=== PATIENT | female | born 1985 | race Caucasian/White ===

== ENCOUNTER 2018-12-30 15:36 | Emergency (ER) | payer OTHER ==
--- NOTE | 2018-12-30 15:59 | EDM.PDOC ---
ED HPI GENERAL MEDICAL PROBLEM - General Chief Complaint: Genitourinary Problem Stated Complaint: PELVIC PAIN Time Seen by Provider: 12/30/18 15:40 Source of Information: Reports: Patient History Limitations: Reports: No Limitations - History of Present Illness INITIAL COMMENTS - FREE TEXT/NARRATIVE: History of present illness: []Patient visiting here until January 16 and states she's been having lower abdominal pain with intercourse for the last week. Patient has had a hysterectomy and oophorectomy for endometriosis in the past. She denies any fevers, chills, vomiting, diarrhea, vaginal discharge or history of STDs. Review of systems: As per history of present illness and below otherwise all systems reviewed and negative. Past medical history: As per history of present illness and as reviewed below otherwise noncontributory. Surgical history: As per history of present illness and as reviewed below otherwise noncontributory. Social history: No reported history of drug or alcohol abuse. Family history: As per history of present illness and as reviewed below otherwise noncontributory. Physical exam: General: Well developed, well nourished in NAD HEENT: Atraumatic, normocephalic, pupils reactive, negative for conjunctival pallor or scleral icterus, mucous membranes moist, throat clear, neck supple, nontender, trachea midline. Lungs: Clear to auscultation, breath sounds equal bilaterally, chest nontender. Heart: S1S2, regular, negative for clicks, rubs, or JVD. Abdomen: NABS, Soft, nondistended, nontender. Negative for masses or hepatosplenomegaly. Negative for costovertebral tenderness. Pelvis: Stable nontender. Genitourinary: Cultures obtained him a diffuse tenderness and difficult exam with speculum as a thick yellow discharge present Rectal: Deferred. Extremities: Atraumatic, negative for cords or calf pain. Neurovascular unremarkable. Neuro: Awake, alert, oriented. Cranial nerves II through XII unremarkable. Cerebellum unremarkable. Motor and sensory unremarkable throughout. Exam nonfocal. Skin:warm and dry Diagnostics: UA, wet prep, GC chlamydia cultures Therapeutics: Ibuprofen ED Course: Stable Impression: Dyspareunia Prescriptions: None Plan: Patient did not want to wait for wet prep results being discharged stable follow -up women's health Definitive disposition and diagnosis as appropriate pending reevaluation and review of above. Pelvic Pain Score (Numeric/FACES): 7 - Related Data Allergies Allergy/AdvReac Type Severity Reaction Status Date / Time azithromycin [From Zithromax] Allergy Headache Verified 12/30/18 15:54 hydromorphone [From Dilaudid] Allergy Hives Verified 12/30/18 15:54 Penicillins Allergy Anaphylactic Verified 12/30/18 15:54 Shock tramadol Allergy Hives Verified 12/30/18 15:54 Home Meds: Home Meds Sertraline [Zoloft] 50 mg PO DAILY 12/30/18 [History] Past Medical History HEENT History: Reports: None Cardiovascular History: Reports: None Respiratory History: Reports: None Gastrointestinal History: Reports: None 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 Musculoskeletal History: Reports: None Neurological History: Reports: None Psychiatric History: Reports: None Endocrine/Metabolic History: Reports: None Hematologic History: Reports: None Immunologic History: Reports: None Oncologic (Cancer) History: Reports: None Dermatologic History: Reports: None - Infectious Disease History Infectious Disease History: Reports: None - Past Surgical History Head Surgeries/Procedures: Reports: None Female Surgical History: Reports: Hysterectomy Musculoskeletal Surgical History: Reports: Other (See Below) Other Musculoskeletal Surgeries/Procedures:: Neck surgery, L ankle surgery Social & Family History - Family History Family Medical History: Noncontributory - Tobacco Use Smoking Status *Q: Current Every Day Smoker Years of Tobacco use: 4 Packs/Tins Daily: 0.5 - Caffeine Use Caffeine Use: Reports: Coffee - Recreational Drug Use Recreational Drug Use: No ED ROS GENERAL - Review of Systems Review Of Systems: ROS reveals no pertinent complaints other than HPI. ED EXAM, RENAL/ - Physical Exam Exam: See Below (See history of present illness) Course - Vital Signs Last Recorded V/S: Last Vital Signs Temp 98 F 12/30/18 15:54 Pulse 83 12/30/18 15:54 Resp 16 12/30/18 15:54 BP 137/87 12/30/18 15:54 Pulse Ox 97 12/30/18 15:54 - Orders/Labs/Meds Orders: Active Orders 24 hr Category Date Time Status CHLAMYDIA AND GONORRHEA BY TMA Stat Lab 12/30/18 16:10 Received TRICH/JUAN RAMON/CAND BY DNA PROBE [MOLEC] Stat Lab 12/30/18 16:10 Received Labs: Laboratory Tests 12/30/18 Range/Units 15:49 Urine Color YELLOW Urine Appearance SLT CLOUDY Urine pH 8.5 H (5.0-8.0) Ur Specific [place] 1.015 (1.001-1.035) Urine Protein NEGATIVE (NEGATIVE) mg/dL Urine Glucose (UA) NEGATIVE (NEGATIVE) mg/dL Urine Ketones NEGATIVE (NEGATIVE) mg/dL Urine Occult Blood TRACE-INTACT H (NEGATIVE) Urine Nitrite NEGATIVE (NEGATIVE) Urine Bilirubin NEGATIVE (NEGATIVE) Urine Urobilinogen 0.2 (<2.0) EU/dL Ur Leukocyte Esterase NEGATIVE (NEGATIVE) Urine RBC NONE SEEN (0-2/HPF) Urine WBC NONE SEEN (0-5/HPF) Ur Epithelial Cells NOT SEEN (NONE-FEW) Urine Bacteria RARE (NEGATIVE) Meds: Medications Discontinued Medications Generic Name Dose Route Start Last Admin Trade Name Freq PRN Reason Stop Dose Admin Hydrocodone Bitart/Acetaminophen 1 tab 12/30/18 16:32 12/30/18 16:35 Busy 325-5 Mg PO 12/30/18 16:33 1 tab ONETIME ONE Administration Ibuprofen 600 mg 12/30/18 16:15 12/30/18 16:28 Motrin PO 12/30/18 16:16 600 mg ONETIME ONE Administration Departure - Departure Time of Disposition: 17:04 Disposition: Home, Self-Care 01 Condition: Good Clinical Impression: Dyspareunia - Discharge Information *PRESCRIPTION DRUG MONITORING PROGRAM REVIEWED*: No *COPY OF PRESCRIPTION DRUG MONITORING REPORT IN PATIENT GARRISON: No Referrals: PCP,None [Primary Care Provider] - Forms: ED Department Discharge Additional Instructions: The following information is given to patients seen in the emergency department who are being discharged to home. This information is to outline your options for follow-up care. We provide all patients seen in our emergency department with a follow-up referral. The need for follow-up, as well as the timing and circumstances, are variable depending upon the specifics of your emergency department visit. If you don't have a primary care physician on staff, we will provide you with a referral. We always advise you to contact your personal physician following an emergency department visit to inform them of the circumstance of the visit and for follow-up with them and/or the need for any referrals to a consulting specialist. The emergency department will also refer you to a specialist when appropriate. This referral assures that you have the opportunity for follow-up care with a specialist. All of these measure are taken in an effort to provide you with optimal care, which includes your follow-up. Under all circumstances we always encourage you to contact your private physician who remains a resource for coordinating your care. When calling for follow-up care, please make the office aware that this follow-up is from your recent emergency room visit. If for any reason you are refused follow-up, please contact the [facility] Emergency Department at and asked to speak to the emergency department charge nurse. Ibuprofen and warm packs for pain follow-up with clinic for further work up and pain management. [facility] Primary Care - Women's Health [address] [place] [id number] - My Orders Last 24 Hours: My Active Orders 12/30/18 16:10 CHLAMYDIA AND GONORRHEA BY TMA Stat TRICH/JUAN RAMON/CAND BY DNA PROBE [MOLEC] Stat - Assessment/Plan Last 24 Hours: My Active Orders 12/30/18 16:10 CHLAMYDIA AND GONORRHEA BY TMA Stat TRICH/JUAN RAMON/CAND BY DNA PROBE [MOLEC] Stat
[2018-12-30] MEDS ORDERED: Ibuprofen 600 MG Tab PO ONE (16:15)
[2018-12-30] MEDS ORDERED: Acetaminophen/HYDROcodone 325-5 MG Tab PO ONE (16:32)
== END 2018-12-30 17:13 | disposition home or self-care (01) ==
LOC: MW.ED 15:36
DX: N94.10 Unspecified dyspareunia (principal); F17.210 Nicotine dependence, cigarettes, uncomplicated; Z88.1 Allergy status to other antibiotic agents; Z88.8 Allergy status to other drugs, medicaments and biological substances; Z88.0 Allergy status to penicillin
CPT/HCPCS: 81001; 87480; 87491; 87510; 87591; 87660; 99284; A9270; 99282

== ENCOUNTER 2019-01-03 13:14 | Emergency (ER) | payer OTHER ==
--- NOTE | 2019-01-03 14:05 | EDM.PDOC ---
ED HPI GENERAL MEDICAL PROBLEM - General Chief Complaint: Back Pain or Injury Stated Complaint: back pain Time Seen by Provider: 01/03/19 13:40 Source of Information: Reports: Patient History Limitations: Reports: No Limitations - History of Present Illness INITIAL COMMENTS - FREE TEXT/NARRATIVE: Presents reporting low back pain. The patient has a long history of low back pain and has an appointment with her primary provider in [place] in January. She just completed a long drive to [place] as well as helping her mom to unload and clean. The pain mostly radiates to her left buttock sometimes down to her left foot. No loss of bowel or bladder function, foreign travel, fevers or saddle anesthesia. Back Pain Score (Numeric/FACES): 7 - Related Data Allergies Allergy/AdvReac Type Severity Reaction Status Date / Time azithromycin [From Zithromax] Allergy Headache Verified 12/30/18 15:54 hydromorphone [From Dilaudid] Allergy Hives Verified 12/30/18 15:54 ketorolac [From Toradol] Allergy Hives Verified 01/03/19 13:26 Penicillins Allergy Anaphylactic Verified 12/30/18 15:54 Shock tramadol Allergy Hives Verified 12/30/18 15:54 Home Meds: Home Meds Sertraline [Zoloft] 10 mg PO DAILY 12/30/18 [History] Cyclobenzaprine [Flexeril] 1 tab PO TID PRN #20 tab 01/03/19 [Rx] Diclofenac Sodium [Voltaren] 75 mg PO BIDMEALS PRN #20 tab.ec 01/03/19 [Rx] Past Medical History HEENT History: Reports: None Cardiovascular History: Reports: None Respiratory History: Reports: None Gastrointestinal History: Reports: None 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 Musculoskeletal History: Reports: None Neurological History: Reports: None Psychiatric History: Reports: None Endocrine/Metabolic History: Reports: None Hematologic History: Reports: None Immunologic History: Reports: None Oncologic (Cancer) History: Reports: None Dermatologic History: Reports: None - Infectious Disease History Infectious Disease History: Reports: Chicken Pox - Past Surgical History Head Surgeries/Procedures: Reports: None Female Surgical History: Reports: Hysterectomy Musculoskeletal Surgical History: Reports: Other (See Below) Other Musculoskeletal Surgeries/Procedures:: Neck surgery, L ankle surgery Social & Family History - Family History Family Medical History: Noncontributory - Tobacco Use Smoking Status *Q: Current Every Day Smoker Years of Tobacco use: 7 Packs/Tins Daily: 0.5 - Caffeine Use Caffeine Use: Reports: Soda - Recreational Drug Use Recreational Drug Use: No ED ROS GENERAL - Review of Systems Review Of Systems: ROS reveals no pertinent complaints other than HPI. ED EXAM,LOWER BACK PAIN/INJURY - Physical Exam Exam: See Below Exam Limited By: No Limitations General Appearance: Alert, No Apparent Distress Ears: Normal External Exam Nose: Normal Inspection Throat/Mouth: Normal Inspection Head: Atraumatic, Normocephalic Neck: Normal Inspection Respiratory/Chest: No Respiratory Distress, Lungs Clear, Normal Breath Sounds Cardiovascular: Normal Peripheral Pulses, Regular Rate, Rhythm, No Murmur Back Exam: Normal Inspection, Paraspinal Tenderness (Left SI joint), Vertebral Tenderness (Lumbar), Other (Negative SLR bilateral) Extremities: Normal Inspection Neurological: Alert, Normal Dorsiflexion, No Motor/Sensory Deficits. No: Straight Leg Raise (L), Straight Leg Raise (R), Difficulty Walking DTR - Lower Extremities: 2+: Knee (R), Knee (L) Psychiatric: Normal Affect, Normal Mood Skin Exam: Warm, Dry, Intact, Normal Color, No Rash Lymphatic: No Adenopathy Course - Vital Signs Last Recorded V/S: Last Vital Signs Temp 36.3 C 01/03/19 13:27 Pulse 84 01/03/19 13:27 Resp 16 01/03/19 13:27 BP 107/73 01/03/19 13:27 Pulse Ox 97 01/03/19 13:27 - Orders/Labs/Meds Orders: Active Orders 24 hr Category Date Time Status Orphenadrine [Norflex] Med 01/03/19 14:00 Once 60 mg IM Q12H ONE Medication Orders Orphenadrine Citrate (Norflex) 60 mg IM Q12H ONE Stop: 01/03/19 14:01 Meds: Medications Generic Name Dose Route Start Last Admin Trade Name Freq PRN Reason Stop Dose Admin Orphenadrine Citrate 60 mg 01/03/19 14:00 Norflex IM 01/03/19 14:01 Q12H ONE Departure - Departure Time of Disposition: 14:03 Disposition: Home, Self-Care 01 Condition: Good Clinical Impression: Lumbar strain Qualifiers: Encounter type: subsequent encounter Qualified Code(s): S39.012D - Strain of muscle, fascia and tendon of lower back, subsequent encounter - Discharge Information Prescriptions: Cyclobenzaprine [Flexeril] 1 tab PO TID PRN #20 tab PRN Reason: Muscle Spasm Diclofenac Sodium [Voltaren] 75 mg PO BIDMEALS PRN #20 tab.ec PRN Reason: Pain Referrals: PCP,None [Primary Care Provider] - [facility] [Outside] [facility] [Outside] Additional Instructions: 1. Follow-up with primary provider in [place] 2. Flexeril 10 mg every 8 hours as needed for muscle spasm 3. Diclofenac 75 mg twice daily for pain. Take with food - My Orders Last 24 Hours: My Active Orders 01/03/19 14:00 Orphenadrine [Norflex] 60 mg IM Q12H ONE - Assessment/Plan Last 24 Hours: My Active Orders 01/03/19 14:00 Orphenadrine [Norflex] 60 mg IM Q12H ONE
== END 2019-01-03 14:15 | disposition home or self-care (01) ==
LOC: MW.ED 13:14
DX: S39.012A Strain of muscle, fascia and tendon of lower back, initial encounter (principal); F17.210 Nicotine dependence, cigarettes, uncomplicated; Z88.1 Allergy status to other antibiotic agents; Z88.5 Allergy status to narcotic agent; Z79.899 Other long term (current) drug therapy; Z88.0 Allergy status to penicillin; X58.XXXA Exposure to other specified factors, initial encounter
CPT/HCPCS: 96372; 99283; J2360

== ENCOUNTER 2019-01-12 17:01 | Emergency (ER) | payer OTHER ==
[2019-01-12] MEDS ORDERED: Diclofenac Sodium 75 MG Tab.EC PO ONE (18:35)
--- NOTE | 2019-01-12 18:35 | EDM.PDOC ---
ED HPI GENERAL MEDICAL PROBLEM - General Chief Complaint: Back Pain or Injury Stated Complaint: NECK PAIN Time Seen by Provider: 01/12/19 17:58 Source of Information: Reports: Patient History Limitations: Reports: No Limitations - History of Present Illness INITIAL COMMENTS - FREE TEXT/NARRATIVE: HISTORY AND PHYSICAL: History of present illness: Patient is a 33-year-old female presents to the ED today with neck pain over the past 2-3 days. Patient rates her pain a 10 out of 10 and states she has taken Tylenol without relief of her symptoms. Patient states she has a history of chronic neck pain and had a bulging disc in which she had had surgery on many years ago. Patient denies any trauma or injury to the neck. Patient states other than the pain, she has no other symptoms and feels per her usual self. Patient denies fever, chills, chest pain, shortness of breath, or cough. Denies headache, change in vision, syncope, or near syncope. Denies nausea, vomiting, abdominal pain, diarrhea, constipation, or dysuria. Has not noted any blood in urine or stool. Patient has been eating and drinking appropriately. Review of systems: As per history of present illness and below otherwise all systems reviewed and negative. Past medical history: As per history of present illness and as reviewed below otherwise noncontributory. Surgical history: As per history of present illness and as reviewed below otherwise noncontributory. Social history: See social history for further information Family history: As per history of present illness and as reviewed below otherwise noncontributory. Physical exam: General: Patient is alert, oriented, and in no acute distress. Patient sitting comfortably on exam table. HEENT: Atraumatic, normocephalic, pupils equal and reactive bilaterally, negative for conjunctival pallor or scleral icterus, mucous membranes moist, TMs normal bilaterally, throat clear, neck supple, nontender, trachea midline. No drooling or trismus noted. No meningeal signs. No hot potato voice noted. Lungs: Clear to auscultation, breath sounds equal bilaterally, chest nontender. Heart: S1S2, regular rate and rhythm without overt murmur Abdomen: Soft, nondistended, nontender. Negative for masses or hepatosplenomegaly. Negative for costovertebral tenderness. Pelvis: Stable nontender. Genitourinary: Deferred. Rectal: Deferred. Skin: Intact, warm, dry. No lesions or rashes noted. Extremities/musculoskeletal: Atraumatic, negative for cords or calf pain. Neurovascular unremarkable.patient has full range of motion of the thoracic and lumbar spine. Patient has limited range of motion of the cervical spine due to pain. Patient does have specific point tenderness of bilateral trapezius muscles and negative pain to palpation of the spinous processes themselves. No obvious deformities, step-offs, or crepitus of the complete spine. Negative Kernig / Brudzinski sign. Neuro: Awake, alert, oriented. Cranial nerves II through XII unremarkable. Cerebellum unremarkable. Motor and sensory unremarkable throughout. Exam nonfocal. Notes: Discussed the importance for follow-up with a primary care provider.Voices understanding and is agreeable to plan of care. Denies any further questions or concerns at this time. Diagnostics: Cervical XR Therapeutics: Norflex, Diclofenac Prescription: Patient declines diclofenac and Flexeril Impression: Neck pain / spasm Plan: 1. Alternate ibuprofen and Tylenol as directed for pain and discomfort. Follow up with her primary care provider as discussed. 2. Return to the ED as needed and as discussed. Definitive disposition and diagnosis as appropriate pending reevaluation and review of above. Neck Pain Score (Numeric/FACES): 10 - Related Data Allergies Allergy/AdvReac Type Severity Reaction Status Date / Time azithromycin [From Zithromax] Allergy Headache Verified 01/12/19 17:23 hydromorphone [From Dilaudid] Allergy Hives Verified 01/12/19 17:23 ketorolac [From Toradol] Allergy Hives Verified 01/12/19 17:23 Penicillins Allergy Anaphylactic Verified 01/12/19 17:23 Shock tramadol Allergy Hives Verified 01/12/19 17:23 Home Meds: Home Meds Sertraline [Zoloft] 10 mg PO DAILY 12/30/18 [History] Cyclobenzaprine [Flexeril] 1 tab PO TID PRN #20 tab 01/03/19 [Rx] Diclofenac Sodium [Voltaren] 75 mg PO BIDMEALS PRN #20 tab.ec 01/03/19 [Rx] Past Medical History HEENT History: Reports: None Cardiovascular History: Reports: None Respiratory History: Reports: None Gastrointestinal History: Reports: None 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 Musculoskeletal History: Reports: None Neurological History: Reports: None Psychiatric History: Reports: None Endocrine/Metabolic History: Reports: None Hematologic History: Reports: None Immunologic History: Reports: None Oncologic (Cancer) History: Reports: None Dermatologic History: Reports: None - Infectious Disease History Infectious Disease History: Reports: None - Past Surgical History Head Surgeries/Procedures: Reports: None Female Surgical History: Reports: Hysterectomy Musculoskeletal Surgical History: Reports: Other (See Below) Other Musculoskeletal Surgeries/Procedures:: Neck surgery, L ankle surgery Social & Family History - Family History Family Medical History: Noncontributory - Tobacco Use Smoking Status *Q: Current Every Day Smoker Years of Tobacco use: 4 Packs/Tins Daily: 0.5 - Caffeine Use Caffeine Use: Reports: Coffee - Recreational Drug Use Recreational Drug Use: No ED ROS GENERAL - Review of Systems Review Of Systems: ROS reveals no pertinent complaints other than HPI. ED EXAM, UPPER BACK/NECK PAIN - Physical Exam Exam: See Below (see dictation) Course - Vital Signs Last Recorded V/S: Last Vital Signs Temp 36.5 C 01/12/19 17:24 Pulse 81 01/12/19 17:24 Resp 16 01/12/19 17:24 BP 128/77 01/12/19 17:24 Pulse Ox 98 01/12/19 17:24 - Orders/Labs/Meds Meds: Medications Discontinued Medications Generic Name Dose Route Start Last Admin Trade Name [place] PRN Reason Stop Dose Admin Diclofenac Sodium 75 mg 01/12/19 18:35 01/12/19 19:00 Voltaren PO 01/12/19 18:36 75 mg ONETIME ONE Administration Orphenadrine Citrate 60 mg 01/12/19 18:04 01/12/19 18:10 Norflex IM 01/12/19 18:05 60 mg NOW STA Administration Departure - Departure Time of Disposition: 19:46 Disposition: Home, Self-Care 01 Clinical Impression: Neck pain, Muscle spasms of neck - Discharge Information Instructions: Musculoskeletal Pain Referrals: PCP,None [Primary Care Provider] - Forms: ED Department Discharge Additional Instructions: The following information is given to patients seen in the emergency department who are being discharged to home. This information is to outline your options for follow-up care. We provide all patients seen in our emergency department with a follow-up referral. The need for follow-up, as well as the timing and circumstances, are variable depending upon the specifics of your emergency department visit. If you don't have a primary care physician on staff, we will provide you with a referral. We always advise you to contact your personal physician following an emergency department visit to inform them of the circumstance of the visit and for follow-up with them and/or the need for any referrals to a consulting specialist. The emergency department will also refer you to a specialist when appropriate. This referral assures that you have the opportunity for follow-up care with a specialist. All of these measure are taken in an effort to provide you with optimal care, which includes your follow-up. Under all circumstances we always encourage you to contact your private physician who remains a resource for coordinating your care. When calling for follow-up care, please make the office aware that this follow-up is from your recent emergency room visit. If for any reason you are refused follow-up, please contact the [facility] Emergency Department at and asked to speak to the emergency department charge nurse. [facility] [address] [place] [id number] [place] [address] 1. Alternate ibuprofen and Tylenol as directed for pain and discomfort. Follow up with her primary care provider as discussed. 2. Return to the ED as needed and as discussed.
--- NOTE | 2019-01-12 19:07 | CR ---
INDICATION: Cervical pain, similar to pain prior to surgery. COMPARISON: None available. FINDINGS: The cervical spine was examined with AP, lateral, and open-mouth views for a total of three views. There is straightening of the cervical spine which may be the result of muscular spasm or positioning for the examination. There has been anterior cervical fusion at C5-6. The fused segments are in anatomic alignment. The anterior metallic plate, anchoring screws, and interbody graft are intact and are in good alignment. There is solid osseous fusion, with complete absence of the disc space. There is mild C6-7 and C7-T1 disc degenerative disease with mild loss of disc height. The rest of the cervical spine is normal in appearance IMPRESSION: Satisfactory appearance status post anterior cervical fusion at C5-6 with solid osseous fusion. Mild C6-7 and C7-T1 disc degenerative disease. Dictated by Rojelio Sun MD @ Jan 12 2019 7:01PM Signed by Dr. Rojelio Sun @ Jan 12 2019 7:05PM
== END 2019-01-12 18:59 | disposition home or self-care (01) ==
LOC: MW.ED 17:01
DX: M62.838 Other muscle spasm (principal); F17.210 Nicotine dependence, cigarettes, uncomplicated; Z79.899 Other long term (current) drug therapy; Z88.1 Allergy status to other antibiotic agents; Z88.6 Allergy status to analgesic agent; Z88.0 Allergy status to penicillin
CPT/HCPCS: 72040; 96372; 99283; A9270; J2360

== ENCOUNTER 2019-08-15 16:08 | Emergency (ER) | payer OTHER ==
[2019-08-15] MEDS ORDERED: Ketorolac 30 MG/ML SDV IVPUSH ONE (16:38)
[2019-08-15] MEDS ORDERED: Sodium Chloride 0.9% 1,000 ML IV ONE (16:38)
[2019-08-15] MEDS ORDERED: Morphine 2 MG/ML Syringe IVPUSH ONE ×2 (16:40→18:05)
--- NOTE | 2019-08-15 16:40 | EDM.PDOC ---
ED HPI GENERAL MEDICAL PROBLEM - General Chief Complaint: Abdominal Pain Stated Complaint: ABDOMINAL PAIN Time Seen by Provider: 08/15/19 16:38 Source of Information: Reports: Patient History Limitations: Reports: No Limitations - History of Present Illness INITIAL COMMENTS - FREE TEXT/NARRATIVE: HISTORY AND PHYSICAL: History of present illness: Patient is a 34-year-old female presents to the ED With complaint of right lower abdominal pain x 3 days. She states the pain has progressively gotten worse. She reports painful urination and blood in her urine. She also notes blood on the toilet paper from vaginal bleeding. She states she had a total hysterectomy secondary to endometriosis. She has also had an appendectomy. She denies fevers, chills, nausea, vomiting, diarrhea. Denies history of STDs and is not concerned for this today. Patient states she had a similar pain 2 months ago and had laparoscopic surgery to remove endometriosis in [place]. Review of systems: As per history of present illness and below otherwise all systems reviewed and negative. Past medical history: As per history of present illness and as reviewed below otherwise noncontributory. Surgical history: As per history of present illness and as reviewed below otherwise noncontributory. Social history: No reported history of drug or alcohol abuse. Family history: As per history of present illness and as reviewed below otherwise noncontributory. Physical exam: General: Patient sitting comfortably in no acute distress and nontoxic appearing HEENT: Atraumatic, normocephalic, pupils reactive, negative for conjunctival pallor or scleral icterus, mucous membranes moist, throat clear, neck supple, nontender, trachea midline. No meningeal signs. Lungs: Clear to auscultation, breath sounds equal bilaterally, chest nontender. Heart: S1S2, regular, negative for clicks, rubs, or overt murmur. Abdomen: RLQ tenderness to palpation. Soft, nondistended. Negative for masses or hepatosplenomegaly. Negative for costovertebral tenderness. No rigidity, rebound, guarding. Pelvis: Stable nontender. Genitourinary: minimal white vaginal discharge. Right adnexal tenderness to palpation. Cervix absent Rectal: Deferred. Extremities: Atraumatic, negative for cords or calf pain. Neurovascular unremarkable. Neuro: Awake, alert, oriented. Cranial nerves II through XII unremarkable. Cerebellum unremarkable. Motor and sensory unremarkable throughout. Exam nonfocal. Notes: Diagnostics: CBC, CMP, UA, gc/chlamdydia, trich/cand/BV Therapeutics: 4mg Morphine IV Prescriptions: Flagyl Impression: Bacterial vaginosis, pelvic pain Plan: Take medication as instructed Alternate tylenol and motrin as needed Follow up with primary care provider and/or inside sales engineer, please call the number provided to schedule an appointment Return to ED as needed as discussed Definitive disposition and diagnosis as appropriate pending reevaluation and review of above. Lower Abdominal Pain Score (Numeric/FACES): 6 - Related Data Allergies Allergy/AdvReac Type Severity Reaction Status Date / Time azithromycin [From Zithromax] Allergy Headache Verified 08/15/19 16:27 hydromorphone [From Dilaudid] Allergy Hives Verified 08/15/19 16:27 ketorolac [From Toradol] Allergy Hives Verified 08/15/19 16:27 Penicillins Allergy Anaphylactic Verified 08/15/19 16:27 Shock tramadol Allergy Hives Verified 08/15/19 16:27 Home Meds: Home Meds Sertraline [Zoloft] 10 mg PO DAILY 12/30/18 [History] Cyclobenzaprine [Flexeril] 1 tab PO TID PRN #20 tab 01/03/19 [Rx] Diclofenac Sodium [Voltaren] 75 mg PO BIDMEALS PRN #20 tab.ec 01/03/19 [Rx] Past Medical History HEENT History: Reports: None Cardiovascular History: Reports: None Respiratory History: Reports: None Gastrointestinal History: Reports: None 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 Musculoskeletal History: Reports: None Neurological History: Reports: None Psychiatric History: Reports: None Endocrine/Metabolic History: Reports: None Hematologic History: Reports: None Immunologic History: Reports: None Oncologic (Cancer) History: Reports: None Dermatologic History: Reports: None - Infectious Disease History Infectious Disease History: Reports: Chicken Pox - Past Surgical History Head Surgeries/Procedures: Reports: None Female Surgical History: Reports: Hysterectomy Musculoskeletal Surgical History: Reports: Other (See Below) Other Musculoskeletal Surgeries/Procedures:: Neck surgery, L ankle surgery Social & Family History - Family History Family Medical History: Noncontributory - Tobacco Use Smoking Status *Q: Current Every Day Smoker Years of Tobacco use: 4 Packs/Tins Daily: 0.5 - Caffeine Use Caffeine Use: Reports: Soda - Recreational Drug Use Recreational Drug Use: No ED ROS GENERAL - Review of Systems Review Of Systems: Comprehensive ROS is negative, except as noted in HPI. ED EXAM, GI/ABD - Physical Exam Exam: See Below (see dictation) Course - Vital Signs Last Recorded V/S: Last Vital Signs Temp 97.9 F 08/15/19 18:38 Pulse 60 08/15/19 18:38 Resp 15 08/15/19 18:38 BP 124/85 08/15/19 18:38 Pulse Ox 98 08/15/19 18:38 - Orders/Labs/Meds Orders: Active Orders 24 hr Category Date Time Status CHLAMYDIA AND GONORRHEA BY TMA Stat Lab 08/15/19 17:59 Ordered Labs: Laboratory Tests 08/15/19 08/15/19 08/15/19 Range/Units 16:50 16:50 17:17 WBC 7.43 (4.0-11.0) K/uL RBC 4.77 (4.30-5.90) M/uL Hgb 13.8 (12.0-16.0) g/dL Hct 41.9 (36.0-46.0) % MCV 87.8 (80.0-98.0) fL MCH 28.9 (27.0-32.0) pg MCHC 32.9 (31.0-37.0) g/dL RDW Std Deviation 42.6 (28.0-62.0) fl RDW Coeff of Brittnee 13 (11.0-15.0) % Plt Count 273 (150-400) K/uL MPV 11.00 (7.40-12.00) fL Neut % (Auto) 74.9 (48.0-80.0) % Lymph % (Auto) 17.9 (16.0-40.0) % Crosby % (Auto) 4.6 (0.0-15.0) % Eos % (Auto) 2.3 (0.0-7.0) % Baso % (Auto) 0.3 (0.0-1.5) % Neut # (Auto) 5.6 (1.4-5.7) K/uL Lymph # (Auto) 1.3 (0.6-2.4) K/uL [place] # (Auto) 0.3 (0.0-0.8) K/uL Eos # (Auto) 0.2 (0.0-0.7) K/uL Baso # (Auto) 0.0 (0.0-0.1) K/uL Nucleated RBC % 0.0 /100WBC Nucleated RBCs # 0 K/uL Sodium 146 H (136-145) mmol/L Potassium 3.3 L (3.5-5.1) mmol/L Chloride 106 (98-107) mmol/L Carbon Dioxide 26.8 (21.0-32.0) mmol/L BUN 12 (7.0-18.0) mg/dL Creatinine 0.8 (0.6-1.0) mg/dL Est Cr Clr Drug Dosing 94.51 mL/min Estimated GFR (MDRD) > 60.0 ml/min Glucose 88 (74-106) mg/dL Calcium 9.5 (8.5-10.1) mg/dL Total Bilirubin 0.4 (0.2-1.0) mg/dL AST 13 L (15-37) IU/L ALT 18 (14-63) IU/L Alkaline Phosphatase 76 (46-116) U/L Total Protein 7.7 (6.4-8.2) g/dL Albumin 4.5 (3.4-5.0) g/dL Globulin 3.2 (2.6-4.0) g/dL Albumin/Globulin Ratio 1.4 (0.9-1.6) Urine Color YELLOW Urine Appearance HAZY Urine pH 6.0 (5.0-8.0) Ur Specific [place] 1.025 (1.001-1.035) Urine Protein NEGATIVE (NEGATIVE) mg/dL Urine Glucose (UA) NEGATIVE (NEGATIVE) mg/dL Urine Ketones NEGATIVE (NEGATIVE) mg/dL Urine Occult Blood SMALL H (NEGATIVE) Urine Nitrite NEGATIVE (NEGATIVE) Urine Bilirubin NEGATIVE (NEGATIVE) Urine Urobilinogen 0.2 (<2.0) EU/dL Ur Leukocyte Esterase NEGATIVE (NEGATIVE) Urine RBC 0-4 (0-2/HPF) Urine WBC 0-4 (0-5/HPF) Ur Epithelial Cells OCCASIONAL (NONE-FEW) Urine Bacteria FEW (NEGATIVE) Urine Mucus MODERATE (NONE-MOD) Olga species DNA (NEGATIVE) Gardnerella DNA Probe (NEGATIVE) Trichomonas DNA Probe (NEGATIVE) 01/28/20 Range/Units 17:52 WBC (4.0-11.0) K/uL RBC (4.30-5.90) M/uL Hgb (12.0-16.0) g/dL Hct (36.0-46.0) % MCV (80.0-98.0) fL MCH (27.0-32.0) pg MCHC (31.0-37.0) g/dL RDW Std Deviation (28.0-62.0) fl RDW Coeff of Brittnee (11.0-15.0) % Plt Count (150-400) K/uL MPV (7.40-12.00) fL Neut % (Auto) (48.0-80.0) % Lymph % (Auto) (16.0-40.0) % Crosby % (Auto) (0.0-15.0) % Eos % (Auto) (0.0-7.0) % Baso % (Auto) (0.0-1.5) % Neut # (Auto) (1.4-5.7) K/uL Lymph # (Auto) (0.6-2.4) K/uL Crosby # (Auto) (0.0-0.8) K/uL Eos # (Auto) (0.0-0.7) K/uL Baso # (Auto) (0.0-0.1) K/uL Nucleated RBC % /100WBC Nucleated RBCs # K/uL Sodium (136-145) mmol/L Potassium (3.5-5.1) mmol/L Chloride (98-107) mmol/L Carbon Dioxide (21.0-32.0) mmol/L BUN (7.0-18.0) mg/dL Creatinine (0.6-1.0) mg/dL Est Cr Clr Drug Dosing mL/min Estimated GFR (MDRD) ml/min Glucose (74-106) mg/dL Calcium (8.5-10.1) mg/dL Total Bilirubin (0.2-1.0) mg/dL AST (15-37) IU/L ALT (14-63) IU/L Alkaline Phosphatase (46-116) U/L Total Protein (6.4-8.2) g/dL Albumin (3.4-5.0) g/dL Globulin (2.6-4.0) g/dL Albumin/Globulin Ratio (0.9-1.6) Urine Color Urine Appearance Urine pH (5.0-8.0) Ur Specific [place] (1.001-1.035) Urine Protein (NEGATIVE) mg/dL Urine Glucose (UA) (NEGATIVE) mg/dL Urine Ketones (NEGATIVE) mg/dL Urine Occult Blood (NEGATIVE) Urine Nitrite (NEGATIVE) Urine Bilirubin (NEGATIVE) Urine Urobilinogen (<2.0) EU/dL Ur Leukocyte Esterase (NEGATIVE) Urine RBC (0-2/HPF) Urine WBC (0-5/HPF) Ur Epithelial Cells (NONE-FEW) Urine Bacteria (NEGATIVE) Urine Mucus (NONE-MOD) Olga species DNA NEGATIVE (NEGATIVE) Gardnerella DNA Probe POSITIVE H (NEGATIVE) Trichomonas DNA Probe NEGATIVE (NEGATIVE) Meds: Medications Discontinued Medications Generic Name Dose Route Start Last Admin Trade Name Freq PRN Reason Stop Dose Admin Sodium Chloride 1,000 mls @ 999 mls/hr 08/15/19 16:38 08/15/19 16:54 Normal Saline IV 08/15/19 17:38 999 mls/hr STAT ONE Administration Ketorolac Tromethamine 30 mg 08/15/19 16:38 08/15/19 17:04 Toradol IVPUSH 08/15/19 16:39 Not Given ONETIME ONE Morphine Sulfate 2 mg 08/15/19 16:40 08/15/19 16:54 Morphine IVPUSH 08/15/19 16:41 2 mg ONETIME ONE Administration Morphine Sulfate 2 mg 08/15/19 18:05 08/15/19 18:31 Morphine IVPUSH 08/15/19 18:06 2 mg ONETIME ONE Administration Departure - Departure Time of Disposition: 19:21 Disposition: Home, Self-Care 01 Condition: Good Clinical Impression: Bacterial vaginosis, Pelvic pain - Discharge Information Referrals: PCP,None [Primary Care Provider] - Forms: ED Department Discharge Additional Instructions: The following information is given to patients seen in the emergency department who are being discharged to home. This information is to outline your options for follow-up care. We provide all patients seen in our emergency department with a follow-up referral. The need for follow-up, as well as the timing and circumstances, are variable depending upon the specifics of your emergency department visit. If you don't have a primary care physician on staff, we will provide you with a referral. We always advise you to contact your personal physician following an emergency department visit to inform them of the circumstance of the visit and for follow-up with them and/or the need for any referrals to a consulting specialist. The emergency department will also refer you to a specialist when appropriate. This referral assures that you have the opportunity for follow-up care with a specialist. All of these measure are taken in an effort to provide you with optimal care, which includes your follow-up. Under all circumstances we always encourage you to contact your private physician who remains a resource for coordinating your care. When calling for follow-up care, please make the office aware that this follow-up is from your recent emergency room visit. If for any reason you are refused follow-up, please contact the [facility] Emergency Department at and asked to speak to the emergency department charge nurse. [facility] [address] [place] [address] [facility] [address] [place] [id number] [facility] - [facility] [address] [place] [id number] [facility] [address] [place] [id number] Take medication as instructed Alternate tylenol and motrin as needed Follow up with primary care provider and/or inside sales engineer, please call the number provided to schedule an appointment Return to ED as needed as discussed Sepsis Event Note - Evaluation Sepsis Screening Result: No Definite Risk - Focused Exam Vital Signs: Vital Signs Temp Pulse Resp BP Pulse Ox 08/15/19 18:38 97.9 F 60 15 124/85 98 08/15/19 17:34 59 L 17 137/83 98 08/15/19 16:28 97.8 F 79 18 136/91 H 98 Date Exam was Performed: 08/15/19 Time Exam was Performed: 19:20 - My Orders Last 24 Hours: My Active Orders 08/15/19 17:59 CHLAMYDIA AND GONORRHEA BY TMA Stat - Assessment/Plan Last 24 Hours: My Active Orders 08/15/19 17:59 CHLAMYDIA AND GONORRHEA BY TMA Stat
[2019-08-15 17:29] LABS: BLOOD UREA NITROGEN,BUN 12 mg/dL (7.0-18.0); CARBON DIOXIDE,CO2 26.8 mmol/L (21.0-32.0); CHLORIDE,CL 106 mmol/L (98-107); GLUCOSE RANDOM 88 mg/dL (74-106); POTASSIUM,K 3.3 mmol/L (3.5-5.1); SODIUM,NA 146 mmol/L (136-145)
== END 2019-08-15 19:47 | disposition home or self-care (01) ==
LOC: MW.ED 16:08
DX: N76.0 Acute vaginitis (principal); B96.89 Other specified bacterial agents as the cause of diseases classified elsewhere; F17.210 Nicotine dependence, cigarettes, uncomplicated; Z88.1 Allergy status to other antibiotic agents; Z88.0 Allergy status to penicillin; Z88.5 Allergy status to narcotic agent; Z79.899 Other long term (current) drug therapy
CPT/HCPCS: 80053; 81001; 85025; 87480; 87491; 87510; 87591; 87660; 96361; 96374; 96376; 99284; J2270; J7030; 99283

== ENCOUNTER 2019-08-18 16:32 | Emergency (ER) | payer OTHER ==
[2019-08-18 17:43] LABS: BLOOD UREA NITROGEN,BUN 15 mg/dL (7.0-18.0); CHLORIDE,CL 107 mmol/L (98-107); GLUCOSE RANDOM 89 mg/dL (74-106); POTASSIUM,K 3.9 mmol/L (3.5-5.1); SODIUM,NA 145 mmol/L (136-145)
--- NOTE | 2019-08-18 17:43 | EDM.PDOC ---
ED HPI GENERAL MEDICAL PROBLEM - General Chief Complaint: Abdominal Pain Stated Complaint: ABDOMINAL PAIN Time Seen by Provider: 08/18/19 16:34 Source of Information: Reports: Patient History Limitations: Reports: No Limitations - History of Present Illness INITIAL COMMENTS - FREE TEXT/NARRATIVE: HISTORY AND PHYSICAL: History of present illness: Patient is a 34-year-old female who presents to the emergency room with complaints of pelvic pain and right abdominal pain. She states the pain has been ongoing for approximately 1 week. She was seen in our emergency room on and did have labs and a pelvic exam done at that time which showed she had bacterial vaginosis. Her lab work was otherwise unremarkable and her STD screening was otherwise negative. She states she has been continuing to have sex while taking the Flagyl and has had increased pain in the vagina with irritation since initiating the medication. Pain after sexual intercourse today. She states that she had a prescription for Tylenol with codeine but is all out and would like a refill of this. She states today's visit is no different than previous and has no other complaints or concerns. Patient denies any fever, chills, headache, change in vision, syncope or near syncope. Denies any chest pain, back pain, shortness of breath or cough. Denies any abdominal pain, nausea, vomiting, diarrhea, constipation or dysuria. Has not noted any blood in urine or stool. Patient has been eating and drinking appropriately. Review of systems: As per history of present illness and below otherwise all systems reviewed and negative. Past medical history: As per history of present illness and as reviewed below otherwise noncontributory. Surgical history: As per history of present illness and as reviewed below otherwise noncontributory. Social history: See social history for further information Family history: As per history of present illness and as reviewed below otherwise noncontributory. Physical exam: General: Developed and well-nourished 34-year-old female. Alert and oriented. Nontoxic-appearing and in no acute distress. HEENT: Atraumatic, normocephalic, pupils equal and reactive bilaterally, negative for conjunctival pallor or scleral icterus, mucous membranes moist, throat clear, neck supple, nontender, trachea midline. No drooling or trismus noted. No meningeal signs. No hot potato voice noted. Lungs: Clear to auscultation, breath sounds equal bilaterally, chest nontender. Heart: S1S2, regular rate and rhythm without overt murmur Abdomen: Soft, nondistended, nontender. Negative for masses or hepatosplenomegaly. Negative for costovertebral tenderness. Pelvis: Stable nontender. Skin: Intact, warm, dry. No lesions or rashes noted. Extremities: Atraumatic, moves all extremities per self without difficulty or deficits, negative for cords or calf pain. Neurovascular unremarkable. Neuro: Awake, alert, oriented. Cranial nerves II through XII unremarkable. Cerebellum unremarkable. Motor and sensory unremarkable throughout. Exam nonfocal. Notes: Patient did just have a pelvic exam with STD screening and the diagnosis of bacterial vaginosis. We will not repeat the pelvic exam today but will repeat some basic lab work. She has asked frequently for Tylenol with codeine while here stating she took all the pain meds she had available to her at home. I will give her some lidocaine jelly for the external genitalia as she states this is where the majority of her pain is. 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 Supportive care measures were reviewed and discussed. Voices understanding and is agreeable to plan of care. Denies any further questions or concerns at this time. Diagnostics: CBC, CMP, UA Therapeutics: None Prescription: Flagyl Lidocaine Jelly Impression: Pelvic Pain Encounter for medication refill Plan: 1. Do not have sex while being treated for bacterial vaginosis. Nothing in the vagina until medications are completed. If you contine to have pelvic pain, follow up with your OBGYN for further management/testing. 2. You can use the topical lidocaine jelly three times daily as needed. Apply topically as directed. 3. Tylenol and/or ibuprofen as needed for pain management. 4. Follow-up with your OBGYN or primary care provider as we discussed. Return to the ED as needed and as discussed Definitive disposition and diagnosis as appropriate pending reevaluation and review of above. - Related Data Allergies Allergy/AdvReac Type Severity Reaction Status Date / Time azithromycin [From Zithromax] Allergy Headache Verified 08/18/19 16:51 hydromorphone [From Dilaudid] Allergy Hives Verified 08/18/19 16:51 ketorolac [From Toradol] Allergy Hives Verified 08/18/19 16:51 Penicillins Allergy Anaphylactic Verified 08/18/19 16:51 Shock tramadol Allergy Hives Verified 08/18/19 16:51 Home Meds: Home Meds Sertraline [Zoloft] 10 mg PO DAILY 12/30/18 [History] Cyclobenzaprine [Flexeril] 1 tab PO TID PRN #20 tab 01/03/19 [Rx] Diclofenac Sodium [Voltaren] 75 mg PO BIDMEALS PRN #20 tab.ec 01/03/19 [Rx] metroNIDAZOLE [Flagyl] 500 mg PO Q12H 7 Days #14 tab 08/15/19 [Rx] Lidocaine 2% [Xylocaine 2% Jelly] 5 ml TOP TID PRN #1 tube 08/18/19 [Rx] metroNIDAZOLE [Flagyl] 500 mg PO BID 2 Days #4 tab 08/18/19 [Rx] Past Medical History HEENT History: Reports: None Cardiovascular History: Reports: None Respiratory History: Reports: None Gastrointestinal History: Reports: None Genitourinary History: Reports: Other (See Below) Other Genitourinary History: Bacterial Vaginosis 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 Musculoskeletal History: Reports: None Neurological History: Reports: None Psychiatric History: Reports: None Endocrine/Metabolic History: Reports: None Hematologic History: Reports: None Immunologic History: Reports: None Oncologic (Cancer) History: Reports: None Dermatologic History: Reports: None - Infectious Disease History Infectious Disease History: Reports: Chicken Pox - Past Surgical History Head Surgeries/Procedures: Reports: None Female Surgical History: Reports: Hysterectomy Musculoskeletal Surgical History: Reports: Other (See Below) Other Musculoskeletal Surgeries/Procedures:: Neck surgery, L ankle surgery Social & Family History - Family History Family Medical History: Noncontributory - Tobacco Use Smoking Status *Q: Current Every Day Smoker Years of Tobacco use: 4 Packs/Tins Daily: 0.5 - Caffeine Use Caffeine Use: Reports: Soda - Recreational Drug Use Recreational Drug Use: No ED ROS GENERAL - Review of Systems Review Of Systems: Comprehensive ROS is negative, except as noted in HPI. ED EXAM, RENAL/ - Physical Exam Exam: See Below (See dictation) Course - Vital Signs Last Recorded V/S: Last Vital Signs Temp 97.1 F 08/18/19 16:48 Pulse 89 08/18/19 16:48 Resp 18 01/31/20 16:48 BP 109/66 08/18/19 16:48 Pulse Ox 97 08/18/19 16:48 - Orders/Labs/Meds Labs: Laboratory Tests 08/18/19 08/18/19 08/18/19 Range/Units 16:37 17:13 17:13 WBC 6.51 (4.0-11.0) K/uL RBC 4.71 (4.30-5.90) M/uL Hgb 14.0 (12.0-16.0) g/dL Hct 41.1 (36.0-46.0) % MCV 87.3 (80.0-98.0) fL MCH 29.7 (27.0-32.0) pg MCHC 34.1 (31.0-37.0) g/dL RDW Std Deviation 41.8 (28.0-62.0) fl RDW Coeff of Brittnee 13 (11.0-15.0) % Plt Count 265 (150-400) K/uL MPV 10.90 (7.40-12.00) fL Neut % (Auto) 63.3 (48.0-80.0) % Lymph % (Auto) 25.3 (16.0-40.0) % [place] % (Auto) 6.5 (0.0-15.0) % Eos % (Auto) 4.3 (0.0-7.0) % Baso % (Auto) 0.6 (0.0-1.5) % Neut # (Auto) 4.1 (1.4-5.7) K/uL Lymph # (Auto) 1.7 (0.6-2.4) K/uL [place] # (Auto) 0.4 (0.0-0.8) K/uL Eos # (Auto) 0.3 (0.0-0.7) K/uL Baso # (Auto) 0.0 (0.0-0.1) K/uL Nucleated RBC % 0.0 /100WBC Nucleated RBCs # 0 K/uL Sodium 145 (136-145) mmol/L Potassium 3.9 (3.5-5.1) mmol/L Chloride 107 (98-107) mmol/L Carbon Dioxide 27.0 (21.0-32.0) mmol/L BUN 15 (7.0-18.0) mg/dL Creatinine 0.7 (0.6-1.0) mg/dL Est Cr Clr Drug Dosing TNP Estimated GFR (MDRD) > 60.0 ml/min Glucose 89 (74-106) mg/dL Calcium 9.5 (8.5-10.1) mg/dL Urine Color YELLOW Urine Appearance CLEAR Urine pH 7.0 (5.0-8.0) Ur Specific [place] 1.025 (1.001-1.035) Urine Protein NEGATIVE (NEGATIVE) mg/dL Urine Glucose (UA) NEGATIVE (NEGATIVE) mg/dL Urine Ketones NEGATIVE (NEGATIVE) mg/dL Urine Occult Blood TRACE-LYSED H (NEGATIVE) Urine Nitrite NEGATIVE (NEGATIVE) Urine Bilirubin NEGATIVE (NEGATIVE) Urine Urobilinogen 0.2 (<2.0) EU/dL Ur Leukocyte Esterase NEGATIVE (NEGATIVE) Urine RBC 0-4 (0-2/HPF) Urine WBC 0-3 (0-5/HPF) Ur Epithelial Cells OCCASIONAL (NONE-FEW) Urine Bacteria FEW (NEGATIVE) Urine Mucus LIGHT (NONE-MOD) Departure - Departure Time of Disposition: 17:42 Disposition: Home, Self-Care 01 Clinical Impression: Pelvic pain, Encounter for medication refill - Discharge Information Prescriptions: Lidocaine 2% [Xylocaine 2% Jelly] 5 ml TOP TID PRN #1 tube PRN Reason: Pain metroNIDAZOLE [Flagyl] 500 mg PO BID 2 Days #4 tab Instructions: Pelvic Pain, Female Referrals: PCP,None [Primary Care Provider] - Forms: ED Department Discharge Additional Instructions: The following information is given to patients seen in the emergency department who are being discharged to home. This information is to outline your options for follow-up care. We provide all patients seen in our emergency department with a follow-up referral. The need for follow-up, as well as the timing and circumstances, are variable depending upon the specifics of your emergency department visit. If you don't have a primary care physician on staff, we will provide you with a referral. We always advise you to contact your personal physician following an emergency department visit to inform them of the circumstance of the visit and for follow-up with them and/or the need for any referrals to a consulting specialist. The emergency department will also refer you to a specialist when appropriate. This referral assures that you have the opportunity for follow-up care with a specialist. All of these measure are taken in an effort to provide you with optimal care, which includes your follow-up. Under all circumstances we always encourage you to contact your private physician who remains a resource for coordinating your care. When calling for follow-up care, please make the office aware that this follow-up is from your recent emergency room visit. If for any reason you are refused follow-up, please contact the [facility] Emergency Department at and asked to speak to the emergency department charge nurse. [facility] [address] [place] [id number] [facility] [address] [place] [id number] 1. Do not have sex while being treated for bacterial vaginosis. Nothing in the vagina until medications are completed. If you contine to have pelvic pain, follow up with your OBGYN for further management/testing. 2. You can use the topical lidocaine jelly as needed. Apply topically as directed. 3. Tylenol and/or ibuprofen as needed for pain management. 4. Follow-up with your OBGYN or primary care provider as we discussed. Return to the ED as needed and as discussed Sepsis Event Note - Evaluation Sepsis Screening Result: No Definite Risk - Focused Exam Vital Signs: Vital Signs Temp Pulse Resp BP Pulse Ox 08/18/19 16:48 97.1 F 89 18 109/66 97 Date Exam was Performed: 08/18/19 Time Exam was Performed: 17:56
== END 2019-08-18 18:15 | disposition home or self-care (01) ==
LOC: MW.ED 16:32
DX: R10.2 Pelvic and perineal pain (principal); Z76.0 Encounter for issue of repeat prescription; F17.210 Nicotine dependence, cigarettes, uncomplicated; Z88.0 Allergy status to penicillin; Z88.1 Allergy status to other antibiotic agents; Z88.5 Allergy status to narcotic agent; Z88.6 Allergy status to analgesic agent
CPT/HCPCS: 36415; 80048; 81001; 85025; 99283; 99284

== ENCOUNTER 2019-08-19 14:09 | Emergency (ER) | payer OTHER ==
--- NOTE | 2019-08-19 14:35 | EDM.PDOC ---
ED HPI GENERAL MEDICAL PROBLEM - General Chief Complaint: Upper Extremity Injury/Pain Stated Complaint: SHOULDER PAIN Time Seen by Provider: 08/19/19 14:25 Source of Information: Reports: Patient History Limitations: Reports: No Limitations - History of Present Illness INITIAL COMMENTS - FREE TEXT/NARRATIVE: HISTORY AND PHYSICAL: History of present illness: Patient is a 34-year-old female who presents to the emergency room with complaints of right shoulder pain. She reports that this pain has been chronic and ongoing for the past 2 to 3 years which she has seen orthopedics in the past. She states she has not been able to see Ortho here in [place] as they were "out of town". I did see this patient yesterday for abdominal pain which she states she failed to inform me of the chronic shoulder pain at that time. She denies any new injury, trauma or falls. She does have full range of motion without any difficulty or deficits. Denies any numbness, tingling or saddle paraesthesia. Offers no systemic complaints. Review of systems: As per history of present illness and below otherwise all systems reviewed and negative. Past medical history: As per history of present illness and as reviewed below otherwise noncontributory. Surgical history: As per history of present illness and as reviewed below otherwise noncontributory. Social history: See social history for further information Family history: As per history of present illness and as reviewed below otherwise noncontributory. Physical exam: General: Well-developed and well-nourished 34-year-old female. Alert and oriented. Nontoxic-appearing and in no acute distress. HEENT: Atraumatic, normocephalic, pupils equal and reactive bilaterally, negative for conjunctival pallor or scleral icterus, mucous membranes moist, throat clear, neck supple, nontender, trachea midline. No drooling or trismus noted. No meningeal signs. No hot potato voice noted. Lungs: Clear to auscultation, breath sounds equal bilaterally, chest nontender. Heart: S1S2, regular rate and rhythm without overt murmur Abdomen: Soft, nondistended, nontender. Negative for masses or hepatosplenomegaly. Negative for costovertebral tenderness. Skin: Intact, warm, dry. No lesions or rashes noted. Extremities: Atraumatic, moves all extremities per self without difficulty or deficits, full ROM. No weakness or difficulty with empty can test. Neurovascular unremarkable. Neuro: Awake, alert, oriented. Cranial nerves II through XII unremarkable. Cerebellum unremarkable. Motor and sensory unremarkable throughout. Exam nonfocal. Notes: X-ray shows no acute findings. The past two visits the patient has been requesting narcotic pain medications. She states she is out of the limited amount of Tylneol with codiene that she had been prescribed in the ER earlier this week. She initially failed to tell me she had been prescribed Pierpont, reviewing the [place] Prescription monitoring program (our pharmacist was able to print), she has had several small scripts filled for Pierpont, Percocet, and Tylenol #3 along with #50 tabs of Pierpont a little over a month ago. She states the Pierpont was prescribed by her primary care provider in [place], Dr Kevyn Tate. I informed her I would not be refilling her pain medication through the ER and gave her follow up information/resources for pain management, primary care and orthopedics. She is dissatisfied with not having prescription. She is already on Flexeril and Diclofenac - and has multiple drug allergies. Supportive care measures were reviewed and discussed. Denies any further questions or concerns at this time. Diagnostics: X-ray Therapeutics: Sling Prescription: None Impression: Chronic Pain Encounter for pain management Drug Seeking Behavior Plan: 1. Rest, ice, elevate the affected extremity. Please wear the splint as directed. 2. Tylenol and/or Ibuprofen as needed for pain management. You can continue taking your home Flexeril and Diclofenac as directed for pain. 3. Follow up with the Orthopedic provider or Pain Specialist as we discussed. Return to the ED as needed and as discussed. Definitive disposition and diagnosis as appropriate pending reevaluation and review of above. Duration: Chronic right shoulder Pain Score (Numeric/FACES): 6 - Related Data Allergies Allergy/AdvReac Type Severity Reaction Status Date / Time azithromycin [From Zithromax] Allergy Headache Verified 08/19/19 14:24 hydromorphone [From Dilaudid] Allergy Hives Verified 08/19/19 14:24 ketorolac [From Toradol] Allergy Hives Verified 08/19/19 14:24 Penicillins Allergy Anaphylactic Verified 08/19/19 14:24 Shock tramadol Allergy Hives Verified 08/19/19 14:24 Home Meds: Home Meds Sertraline [Zoloft] 10 mg PO DAILY 12/30/18 [History] Cyclobenzaprine [Flexeril] 1 tab PO TID PRN #20 tab 01/03/19 [Rx] Diclofenac Sodium [Voltaren] 75 mg PO BIDMEALS PRN #20 tab.ec 01/03/19 [Rx] metroNIDAZOLE [Flagyl] 500 mg PO Q12H 7 Days #14 tab 08/15/19 [Rx] Lidocaine 2% [Xylocaine 2% Jelly] 5 ml TOP TID PRN #1 tube 08/18/19 [Rx] metroNIDAZOLE [Flagyl] 500 mg PO BID 2 Days #4 tab 08/18/19 [Rx] Past Medical History HEENT History: Reports: None Cardiovascular History: Reports: None Respiratory History: Reports: None Gastrointestinal History: Reports: None Genitourinary History: Reports: Other (See Below) Other Genitourinary History: Bacterial Vaginosis 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 MICROSCOPIST History: Reports: Endometriosis Musculoskeletal History: Reports: None Neurological History: Reports: None Psychiatric History: Reports: None Endocrine/Metabolic History: Reports: None Hematologic History: Reports: None Immunologic History: Reports: None Oncologic (Cancer) History: Reports: None Dermatologic History: Reports: None - Infectious Disease History Infectious Disease History: Reports: Chicken Pox - Past Surgical History Head Surgeries/Procedures: Reports: None GI Surgical History: Reports: Appendectomy Female Surgical History: Reports: Hysterectomy, Salpingo-Oophorectomy Musculoskeletal Surgical History: Reports: Other (See Below) Other Musculoskeletal Surgeries/Procedures:: Neck surgery, L ankle surgery Social & Family History - Family History Family Medical History: Noncontributory - Tobacco Use Smoking Status *Q: Current Every Day Smoker Years of Tobacco use: 13 Packs/Tins Daily: 0.5 - Caffeine Use Caffeine Use: Reports: Soda Review of Systems - Review of Systems Review Of Systems: Comprehensive ROS is negative, except as noted in HPI. ED EXAM, GENERAL - Physical Exam Exam: See Below (SEe dictation) Course - Vital Signs Last Recorded V/S: Last Vital Signs Temp 97.0 F 08/19/19 14:22 Pulse 83 08/19/19 14:22 Resp 18 08/19/19 14:22 BP 136/97 H 08/19/19 14:22 Pulse Ox 98 08/19/19 14:22 - Orders/Labs/Meds Orders: Active Orders 24 hr Category Date Time Status DME for Discharge [COMM] Stat Oth 08/19/19 15:04 Ordered Departure - Departure Time of Disposition: 15:33 Disposition: Home, Self-Care 01 Clinical Impression: Encounter for pain management Chronic pain Qualifiers: Chronic pain type: other chronic pain Qualified Code(s): G89.29 - Other chronic pain - Discharge Information Instructions: Chronic Pain, Adult Referrals: PCP,None [Primary Care Provider] - Forms: ED Department Discharge Additional Instructions: The following information is given to patients seen in the emergency department who are being discharged to home. This information is to outline your options for follow-up care. We provide all patients seen in our emergency department with a follow-up referral. The need for follow-up, as well as the timing and circumstances, are variable depending upon the specifics of your emergency department visit. If you don't have a primary care physician on staff, we will provide you with a referral. We always advise you to contact your personal physician following an emergency department visit to inform them of the circumstance of the visit and for follow-up with them and/or the need for any referrals to a consulting specialist. The emergency department will also refer you to a specialist when appropriate. This referral assures that you have the opportunity for follow-up care with a specialist. All of these measure are taken in an effort to provide you with optimal care, which includes your follow-up. Under all circumstances we always encourage you to contact your private physician who remains a resource for coordinating your care. When calling for follow-up care, please make the office aware that this follow-up is from your recent emergency room visit. If for any reason you are refused follow-up, please contact the [facility] Emergency Department at and asked to speak to the emergency department charge nurse. [facility] [address] [place] [id number] [id number] 1. Rest, ice, elevate the affected extremity. Please wear the splint as directed. 2. Tylenol and/or Ibuprofen as needed for pain management. 3. Follow up with the Orthopedic provider as we discussed. Return to the ED as needed and as discussed. Sepsis Event Note - Evaluation Sepsis Screening Result: No Definite Risk - Focused Exam Vital Signs: Vital Signs Temp Pulse Resp BP Pulse Ox 08/19/19 14:22 97.0 F 83 18 136/97 H 98 Date Exam was Performed: 08/19/19 Time Exam was Performed: 15:33 - My Orders Last 24 Hours: My Active Orders 08/19/19 15:04 DME for Discharge [COMM] Stat - Assessment/Plan Last 24 Hours: My Active Orders 08/19/19 15:04 DME for Discharge [COMM] Stat
--- NOTE | 2019-08-19 15:23 | CR ---
Right shoulder: 3 views of the right shoulder were obtained. Comparison: No prior right shoulder imaging. Prior cervical spine surgery is noted. Glenohumeral joint and acromioclavicular joint appears unremarkable. No fracture, dislocation or other bony abnormality is identified. No abnormal soft tissue calcifications are seen. Impression: 1. Prior cervical spine surgery. 2. Three-view right shoulder study is otherwise unremarkable. Diagnostic code #2 This report was dictated in Mountain Standard Time
== END 2019-08-19 16:09 | disposition home or self-care (01) ==
LOC: MW.ED 14:09
DX: M25.511 Pain in right shoulder (principal); G89.29 Other chronic pain; Z76.5 Malingerer [conscious simulation]; F17.210 Nicotine dependence, cigarettes, uncomplicated; Z88.0 Allergy status to penicillin; Z88.1 Allergy status to other antibiotic agents; Z88.6 Allergy status to analgesic agent; Z88.5 Allergy status to narcotic agent
CPT/HCPCS: 73030-26-RT; 73030-RT; 99283; 99283-25

== ENCOUNTER 2019-08-24 07:34 | Emergency (ER) | payer OTHER ==
--- NOTE | 2019-08-24 07:44 | EDM.PDOC ---
ED HPI GENERAL MEDICAL PROBLEM - General Chief Complaint: Abdominal Pain Stated Complaint: STOMACH ISSUES Time Seen by Provider: 08/24/19 07:44 Source of Information: Reports: Patient History Limitations: Reports: No Limitations - History of Present Illness INITIAL COMMENTS - FREE TEXT/NARRATIVE: This 34 year old female is admitted to the ED with a chief complaint of right upper quad to right lower quad abdominal pain with having black tarry stools for two days. She denies any nausea or vomiting. She rates her pain 3-5/10. She states that she took tylenol but did not help. She is status post total abdominal hysterectomy with removal of both ovaries 10 years ago. She denies any other symptoms at this time. Onset: Gradual (two days) Duration: Getting Worse Location: Reports: Abdomen (right upper to right lower abdomen) Quality: Reports: Sharp (in the right upper and lower abdomen.) Severity: Mild (to moderate pain.) Associated Symptoms: Reports: No Other Symptoms Abdomen Pain Score (Numeric/FACES): 5 - Related Data Allergies Allergy/AdvReac Type Severity Reaction Status Date / Time azithromycin [From Zithromax] Allergy Headache Verified 08/24/19 07:43 hydromorphone [From Dilaudid] Allergy Hives Verified 08/24/19 07:43 ketorolac [From Toradol] Allergy Hives Verified 08/24/19 07:43 Penicillins Allergy Anaphylactic Verified 08/24/19 07:43 Shock tramadol Allergy Hives Verified 08/24/19 07:43 Home Meds: Home Meds Sertraline [Zoloft] 100 mg PO DAILY 12/30/18 [History] metroNIDAZOLE [Flagyl] 500 mg PO Q12H 7 Days #14 tab 08/15/19 [Rx] Ibuprofen [Motrin] 800 mg PO BIDM PRN 5 Days #10 tab 08/24/19 [Rx] Past Medical History HEENT History: Reports: None Cardiovascular History: Reports: None Respiratory History: Reports: None Gastrointestinal History: Reports: None Genitourinary History: Reports: Other (See Below) Other Genitourinary History: Bacterial Vaginosis 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 Musculoskeletal History: Reports: None Neurological History: Reports: None Psychiatric History: Reports: None Endocrine/Metabolic History: Reports: None Hematologic History: Reports: None Immunologic History: Reports: None Oncologic (Cancer) History: Reports: None Dermatologic History: Reports: None - Infectious Disease History Infectious Disease History: Reports: Chicken Pox - Past Surgical History Head Surgeries/Procedures: Reports: None GI Surgical History: Reports: Appendectomy Female Surgical History: Reports: Hysterectomy, Salpingo-Oophorectomy Musculoskeletal Surgical History: Reports: Other (See Below) Other Musculoskeletal Surgeries/Procedures:: Neck surgery, L ankle surgery Social & Family History - Family History Family Medical History: Noncontributory - Caffeine Use Caffeine Use: Reports: Soda ED ROS GENERAL - Review of Systems Review Of Systems: See Below Constitutional: Reports: No Symptoms HEENT: Reports: No Symptoms Respiratory: Reports: No Symptoms Cardiovascular: Reports: No Symptoms Endocrine: Reports: No Symptoms GI/Abdominal: Reports: Abdominal Pain (right upper and lower abdominal pain), Black Stool (5-6 loose black stools/day times two days.) : Reports: No Symptoms Musculoskeletal: Reports: No Symptoms Skin: Reports: No Symptoms Hematologic/Lymphatic: Reports: No Symptoms ED EXAM, GI/ABD - Physical Exam Exam: See Below Exam Limited By: No Limitations General Appearance: Alert (but was complaining of ), WD/WN, Mild Distress Eyes: Bilateral: Normal Appearance, EOMI Ears: Normal External Exam, Normal Canal, Hearing Grossly Normal, Normal TMs Nose: Normal Inspection, Normal Mucosa, No Blood Throat/Mouth: Normal Inspection, Normal Teeth, Normal Oropharynx Head: Atraumatic, Normocephalic Neck: Normal Inspection, Supple, Non-Tender, Full Range of Motion Respiratory/Chest: No Respiratory Distress, Lungs Clear, Normal Breath Sounds, No Accessory Muscle Use, Chest Non-Tender Cardiovascular: Normal Peripheral Pulses, Regular Rate, Rhythm, No Edema, No Gallop, No JVD, No Murmur, No Rub GI/Abdominal Exam: Normal Bowel Sounds, Soft, Distended (slightly), Tender (in the right upper and right lower quad). No: Guarding, Rebound (Female) Exam: Deferred Rectal (Female) Exam: Normal Exam, Normal Rectal Tone, Heme - Stool (stool is light brown). No: Hemorrhoids, Mass Back Exam: Normal Inspection, Full Range of Motion, NT Extremities: Normal Inspection, Normal Range of Motion. No: Leidy's Sign Neurological: Alert, Oriented, CN II-XII Intact, Normal Reflexes Skin Exam: Warm, Dry, Intact, Normal Color, No Rash Course - Vital Signs Text/Narrative:: All test were reviewed. Normal lactate, WBC, Lipase, UA and unremarkable CT of the abdomen and pelvis without any acute findings. I reviewed this with the patient. She is taking Flagyl but not as directed. I will give her a Rx for Motrin 800mg. She will be discharged at this time. The patient agrees with the discharge plan. Last Recorded V/S: Last Vital Signs Temp 97.7 F 08/24/19 07:45 Pulse 84 08/24/19 07:45 Resp 17 08/24/19 07:45 BP 131/86 08/24/19 07:45 Pulse Ox 96 08/24/19 07:45 - Orders/Labs/Meds Labs: Laboratory Tests 08/24/19 08/24/19 08/24/19 Range/Units 08:35 08:35 08:35 WBC 6.03 (4.0-11.0) K/uL RBC 4.42 (4.30-5.90) M/uL Hgb 13.1 (12.0-16.0) g/dL Hct 38.7 (36.0-46.0) % MCV 87.6 (80.0-98.0) fL MCH 29.6 (27.0-32.0) pg MCHC 33.9 (31.0-37.0) g/dL RDW Std Deviation 42.6 (28.0-62.0) fl RDW Coeff of Brittnee 13 (11.0-15.0) % Plt Count 226 (150-400) K/uL MPV 11.10 (7.40-12.00) fL Neut % (Auto) 50.2 (48.0-80.0) % Lymph % (Auto) 37.3 (16.0-40.0) % Gibson % (Auto) 8.0 (0.0-15.0) % Eos % (Auto) 3.8 (0.0-7.0) % Baso % (Auto) 0.7 (0.0-1.5) % Neut # (Auto) 3.0 (1.4-5.7) K/uL Lymph # (Auto) 2.3 (0.6-2.4) K/uL Gibson # (Auto) 0.5 (0.0-0.8) K/uL Eos # (Auto) 0.2 (0.0-0.7) K/uL Baso # (Auto) 0.0 (0.0-0.1) K/uL Nucleated RBC % 0.0 /100WBC Nucleated RBCs # 0 K/uL Lactate 0.9 (0.20-2.00) mmol/L Sodium 144 (136-145) mmol/L Potassium 3.6 (3.5-5.1) mmol/L Chloride 107 (98-107) mmol/L Carbon Dioxide 26.3 (21.0-32.0) mmol/L BUN 12 (7.0-18.0) mg/dL Creatinine 0.8 (0.6-1.0) mg/dL Est Cr Clr Drug Dosing 94.51 mL/min Estimated GFR (MDRD) > 60.0 ml/min Glucose 93 (74-106) mg/dL Calcium 9.0 (8.5-10.1) mg/dL Total Bilirubin 0.2 (0.2-1.0) mg/dL AST 11 L (15-37) IU/L ALT 19 (14-63) IU/L Alkaline Phosphatase 73 (46-116) U/L Total Protein 6.8 (6.4-8.2) g/dL Albumin 4.0 (3.4-5.0) g/dL Globulin 2.8 (2.6-4.0) g/dL Albumin/Globulin Ratio 1.4 (0.9-1.6) Lipase 154 (73-393) U/L Urine Color Urine Appearance Urine pH (5.0-8.0) Ur Specific Monroe (1.001-1.035) Urine Protein (NEGATIVE) mg/dL Urine Glucose (UA) (NEGATIVE) mg/dL Urine Ketones (NEGATIVE) mg/dL Urine Occult Blood (NEGATIVE) Urine Nitrite (NEGATIVE) Urine Bilirubin (NEGATIVE) Urine Urobilinogen (<2.0) EU/dL Ur Leukocyte Esterase (NEGATIVE) Urine RBC (0-2/HPF) Urine WBC (0-5/HPF) Ur Epithelial Cells (NONE-FEW) Urine Bacteria (NEGATIVE) 08/24/19 Range/Units 08:41 WBC (4.0-11.0) K/uL RBC (4.30-5.90) M/uL Hgb (12.0-16.0) g/dL Hct (36.0-46.0) % MCV (80.0-98.0) fL MCH (27.0-32.0) pg MCHC (31.0-37.0) g/dL RDW Std Deviation (28.0-62.0) fl RDW Coeff of Brittnee (11.0-15.0) % Plt Count (150-400) K/uL MPV (7.40-12.00) fL Neut % (Auto) (48.0-80.0) % Lymph % (Auto) (16.0-40.0) % Gibson % (Auto) (0.0-15.0) % Eos % (Auto) (0.0-7.0) % Baso % (Auto) (0.0-1.5) % Neut # (Auto) (1.4-5.7) K/uL Lymph # (Auto) (0.6-2.4) K/uL Gibson # (Auto) (0.0-0.8) K/uL Eos # (Auto) (0.0-0.7) K/uL Baso # (Auto) (0.0-0.1) K/uL Nucleated RBC % /100WBC Nucleated RBCs # K/uL Lactate (0.20-2.00) mmol/L Sodium (136-145) mmol/L Potassium (3.5-5.1) mmol/L Chloride (98-107) mmol/L Carbon Dioxide (21.0-32.0) mmol/L BUN (7.0-18.0) mg/dL Creatinine (0.6-1.0) mg/dL Est Cr Clr Drug Dosing mL/min Estimated GFR (MDRD) ml/min Glucose (74-106) mg/dL Calcium (8.5-10.1) mg/dL Total Bilirubin (0.2-1.0) mg/dL AST (15-37) IU/L ALT (14-63) IU/L Alkaline Phosphatase (46-116) U/L Total Protein (6.4-8.2) g/dL Albumin (3.4-5.0) g/dL Globulin (2.6-4.0) g/dL Albumin/Globulin Ratio (0.9-1.6) Lipase (73-393) U/L Urine Color YELLOW Urine Appearance CLEAR Urine pH 6.0 (5.0-8.0) Ur Specific Monroe 1.025 (1.001-1.035) Urine Protein NEGATIVE (NEGATIVE) mg/dL Urine Glucose (UA) NEGATIVE (NEGATIVE) mg/dL Urine Ketones NEGATIVE (NEGATIVE) mg/dL Urine Occult Blood NEGATIVE (NEGATIVE) Urine Nitrite NEGATIVE (NEGATIVE) Urine Bilirubin NEGATIVE (NEGATIVE) Urine Urobilinogen 0.2 (<2.0) EU/dL Ur Leukocyte Esterase TRACE H (NEGATIVE) Urine RBC NONE SEEN (0-2/HPF) Urine WBC 0-3 (0-5/HPF) Ur Epithelial Cells FEW (NONE-FEW) Urine Bacteria RARE (NEGATIVE) Meds: Medications Discontinued Medications Generic Name Dose Route Start Last Admin Trade Name Freq PRN Reason Stop Dose Admin Sodium Chloride 1,000 mls @ 1,000 mls/hr 08/24/19 08:32 08/24/19 08:56 Normal Saline IV 08/24/19 09:31 1,000 mls/hr .Bolus ONE Administration Iopamidol 75 ml 08/24/19 09:52 08/24/19 09:53 Isovue Multipack-370 (76%) IVPUSH 08/24/19 09:53 75 ml ONETIME STA Administration Departure - Departure Time of Disposition: 10:26 Disposition: Home, Self-Care 01 Condition: Good Clinical Impression: Colitis - Discharge Information *PRESCRIPTION DRUG MONITORING PROGRAM REVIEWED*: Yes *COPY OF PRESCRIPTION DRUG MONITORING REPORT IN PATIENT GARRISON: Yes Instructions: Food Choices to Help Relieve Diarrhea, Adult, Colitis Referrals: PCP,None [Primary Care Provider] - Forms: ED Department Discharge Additional Instructions: Take all medications as directed. Follow up with your PCP in the next two to four days. Drink plenty of clear liquids for the next 24-48 hours and advance your diet as tolerated. Rest for the next 24 hours. Return to the ED if your condition gets worse or should you have any questions or concerns. The following information is given to patients seen in the emergency department who are being discharged to home. This information is to outline your options for follow-up care. We provide all patients seen in our emergency department with a follow-up referral. The need for follow-up, as well as the timing and circumstances, are variable depending upon the specifics of your emergency department visit. If you don't have a primary care physician on staff, we will provide you with a referral. We always advise you to contact your personal physician following an emergency department visit to inform them of the circumstance of the visit and for follow-up with them and/or the need for any referrals to a consulting specialist. The emergency department will also refer you to a specialist when appropriate. This referral assures that you have the opportunity for follow-up care with a specialist. All of these measure are taken in an effort to provide you with optimal care, which includes your follow-up. Under all circumstances we always encourage you to contact your private physician who remains a resource for coordinating your care. When calling for follow-up care, please make the office aware that this follow-up is from your recent emergency room visit. If for any reason you are refused follow-up, please contact the [facility] Emergency Department at and asked to speak to the emergency department charge nurse. Sepsis Event Note - Focused Exam Vital Signs: Vital Signs Temp Pulse Resp BP Pulse Ox 08/24/19 07:45 97.7 F 84 17 131/86 96 Date Exam was Performed: 08/24/19 Time Exam was Performed: 10:15
[2019-08-24] MEDS ORDERED: Sodium Chloride 0.9% 1,000 ML IV ONE (08:32)
--- NOTE | 2019-08-24 08:48 | CR ---
HISTORY: Abdominal pain. TECHNIQUE: Portable frontal view the chest. COMPARISON: None. FINDINGS: No airspace consolidation. No pleural effusion or pneumothorax. Pulmonary vasculature and cardiomediastinal silhouette are within normal limits. Fusion hardware in the lower cervical spine. IMPRESSION: No cardiopulmonary abnormality. Dictated by Dez Guerrier MD @ Aug 24 2019 8:42AM Signed by Dr. Dez Guerrier @ Aug 24 2019 8:47AM
[2019-08-24 09:06] LABS: BLOOD UREA NITROGEN,BUN 12 mg/dL (7.0-18.0); CARBON DIOXIDE,CO2 26.3 mmol/L (21.0-32.0); CHLORIDE,CL 107 mmol/L (98-107); GLUCOSE RANDOM 93 mg/dL (74-106); LIPASE 154 U/L (73-393); POTASSIUM,K 3.6 mmol/L (3.5-5.1); SODIUM,NA 144 mmol/L (136-145)
[2019-08-24] MEDS ORDERED: Iopamidol 755 MG/ML 500 ML Multipack Bottle IVPUSH STA (09:52)
--- NOTE | 2019-08-24 10:09 | CT ---
HISTORY: Right-sided abdominal pain. Diarrhea. TECHNIQUE: CT abdomen and pelvis with IV contrast. COMPARISON: None. FINDINGS: Abdomen: Focal fatty infiltration of the liver near the falciform ligament. No bile duct dilation. No pancreatic mass or pancreatic duct dilation. No spleen lesions. Spleen is normal size. No adrenal nodules. Kidneys enhance symmetrically. No renal mass. No hydronephrosis. Possible mild wall thickening of the descending and sigmoid colon. Descending and sigmoid colon are collapsed. No dilated bowel. Appendix is not identified but there are no findings of acute appendicitis. No free fluid. No lymphadenopathy. Abdominal aorta is normal caliber. Pelvis: Uterus is absent. No lymphadenopathy. Musculoskeletal: Bone islands in the left femoral head and left sacral ala. Large left transverse process at L5 on the left articulates with the sacrum. Lower chest: Mild atelectasis in the lung bases. IMPRESSION: Possible mild wall thickening of the descending and sigmoid colon due to colitis. Descending and sigmoid colon are collapsed and wall thickening may be exaggerated. No acute abnormality in the abdomen or pelvis otherwise. Please note that all CT scans at this facility use dose modulation, iterative reconstruction, and/or weight-based dosing when appropriate to reduce radiation dose to as low as reasonably achievable. Dictated by Dez Guerrier MD @ Aug 24 2019 10:00AM Signed by Dr. Dez Guerrier @ Aug 24 2019 10:08AM
[2019-08-24] MEDS ORDERED: Acetaminophen/Codeine 300-30 MG Tab PO ONE (10:26)
== END 2019-08-24 11:11 | disposition home or self-care (01) ==
LOC: MW.ED 07:34
DX: K52.9 Noninfective gastroenteritis and colitis, unspecified (principal); Z90.710 Acquired absence of both cervix and uterus; Z88.1 Allergy status to other antibiotic agents; Z88.5 Allergy status to narcotic agent; Z88.6 Allergy status to analgesic agent; Z88.0 Allergy status to penicillin; Z79.899 Other long term (current) drug therapy; Z90.49 Acquired absence of other specified parts of digestive tract
CPT/HCPCS: 36415; 71045; 74177; 80053; 81001; 83605; 83690; 85025; 96360; 99284; A9270; J7030; Q9967; 99283